=== PATIENT | male | born 1995 | race American Indian/Alaskan Native ===

== ENCOUNTER 2019-09-11 18:52 | Emergency (ER) | payer BC ==
[2019-09-11 19:27] VITALS: BP 144/78
--- NOTE | 2019-09-11 20:20 | Emergency Department Report ---
Chief Complaint: Abdominal Pain Stated Complaint: ABD PAIN/CANT SMELL Time Seen by Provider: 09/11/19 20:14 - HPI History of Present Illness: 24-year-old male patient presents with complaints of abdominal cramping and decreased smell. Patient states his brother has been sick for the past week, however he has not had any known contact with COVID. He denies any cough, shortness of breath, chest pain, diarrhea, nausea/vomiting, fever/chills/sweats. He admits to a mildly decreased appetite. - Exam Vital Signs: Vital Signs 09/11/19 19:24 Temperature 99.7 F H Pulse Rate 87 Respiratory 18 Rate Blood Pressure 144/78 O2 Sat by Pulse 99 Oximetry MSE screening note: Focused history and physical exam performed. Due to findings the following was ordered: ED Medical Decision Making - Medical Decision Making Patient here with complaints of loss of smell and abdominal cramping. He denies any current pain or other symptoms. His lungs are clear to auscultation bilaterally and he has no abdominal tenderness on exam. Patient's brother is here with complaints of loss of smell and taste that has been ongoing for 5 to 7 days. Patient possibly has COVID-19, however he denies any shortness of breath, chest pain, and his vitals are stable. Patient does have a mild low-grade fever 99.7. Recommend patient take Tylenol, drink plenty of water, take vitamin C, and an antihistamine. Patient also instructed to quarantine for 14 days. Patient also advised that he may receive free COVID testing with [facility]. Patient instructed to return to the emergency department if he develops any chest pain, shortness of breath, or new concerning symptoms and verbalizes understanding. Also recommend patient follows up with primary care provider in 10 to 14 days. ED Disposition for MSE Clinical Impression: Loss of smell, Abdominal cramping Disposition: Z- MED SCREENING EXAM-LEFT Is pt being admited?: No Condition: Stable Instructions: COVID-19 Additional Instructions: Please drink plenty of water intake and vitamin C daily. Also recommend you obtain [id number]-[id number] loratadine (Claritin) for your allergies. If you develop any new or worsening symptoms seek immediate emergency treatment. Referrals: PRIMARY CARE, [Primary Care Provider] - 3-5 Days Forms: Work/School Release Form(ED) ED Physical Exam - General Limitations: No Limitations General appearance: alert, in no apparent distress - Head Head exam: Present: atraumatic, normocephalic - Eye Eye exam: Present: normal appearance - ENT ENT exam: Present: normal exam, normal orophraynx - Neck Neck exam: Present: normal inspection, full ROM. Absent: tenderness - Respiratory Respiratory exam: Present: normal lung sounds bilaterally. Absent: respiratory distress, wheezes, rales, rhonchi, stridor - Cardiovascular Cardiovascular Exam: Present: regular rate, normal rhythm - GI/Abdominal GI/Abdominal exam: Present: soft, normal bowel sounds. Absent: distended, tenderness, guarding, rebound, rigid - Back Exam Back exam: Present: normal inspection - Neurological Exam Neurological exam: Present: alert, oriented X3, normal gait - Psychiatric Psychiatric exam: Present: normal affect, normal mood - Skin Skin exam: Present: warm, dry, intact, normal color. Absent: rash, cyanosis, diaphoretic, erythema, petechiae, ecchymosis ED Review of Systems ROS: Stated complaint: ABD PAIN/CANT SMELL Other details as noted in HPI Constitutional: denies: chills, fever, malaise, weakness ENT: denies: ear pain, throat pain Respiratory: denies: cough, shortness of breath Cardiovascular: denies: chest pain Gastrointestinal: denies: abdominal pain, nausea, vomiting, diarrhea Genitourinary: denies: urgency, dysuria, frequency, hematuria Musculoskeletal: denies: back pain, arthralgia Skin: denies: rash, lesions
== END 2019-09-11 20:55 | disposition left against medical advice (07) ==
LOC: ED 18:52
DX: R10.9 Unspecified abdominal pain (principal); R43.9 Unspecified disturbances of smell and taste; Z53.21 Procedure and treatment not carried out due to patient leaving prior to being seen by health care provider

== ENCOUNTER 2019-09-20 06:23 | Emergency (ER) | payer BC ==
[2019-09-20 06:34] VITALS: BP 157/75
== END 2019-09-20 08:01 | disposition left against medical advice (07) ==
LOC: ED 06:23
DX: M54.2 Cervicalgia (principal); M54.6 Pain in thoracic spine; Z53.21 Procedure and treatment not carried out due to patient leaving prior to being seen by health care provider